=== PATIENT | female | born 1980 | race Caucasian/White ===

== ENCOUNTER 2017-04-12 19:48 | Inpatient (IN) | payer MEDICAID, OTHER ==
[~2017-04-12] VITALS: Ht 167.6 cm; Wt 91.6 kg
[~2017-04-12 19:48] MED LIST: DOCU-119 PO; GABA-318 PO; LEVE500T53 PO; LORA0.5T83 PO; MET500 PO; MULT-1238 PO; OMEP20 PO; QUET100T PO; QUET200T PO; TEMA15CA5 PO; TRAM50TA4 PO
[2017-04-12 21:06] LABS: BASOPHILS % (AUTO) 0.3 % (0.0-2.0); EOSINOPHILS % (AUTO) 0.8 % (1.0-6.0); HEMOGLOBIN 14.6 g/dL (12.0-16.0); LYMPHOCYTES # (AUTO) 4.2 K/uL (1.0-4.8); LYMPHOCYTES % (AUTO) 51.7 % (22.0-44.0); MEAN CORPUSCULAR HEMOGLOBIN 32.5 pg (26.0-34.0); MEAN CORPUSCULAR HGB CONC 34.8 G/dL (31.0-37.0); MEAN CORPUSCULAR VOLUME 93 fL (80-100); MONOCYTES # (AUTO) 0.7 K/uL (0.1-1.0); MONOCYTES % (AUTO) 8.8 % (2.0-9.0); NEUTROPHILS # (AUTO) 3.1 K/uL (1.8-7.7); NEUTROPHILS % (AUTO) 38.4 % (40.0-70.0); PLATELET COUNT (AUTO) 193 K/uL (150-450); RED BLOOD CELL COUNT(AUTO) 4.51 MIL/uL (4.00-5.20); RED CELL DISTRIBUTION WIDTH 13.6 % (11.5-14.5); WHITE BLOOD COUNT (AUTO) 8.1 K/uL (4.5-11.0)
[2017-04-12 21:15] LABS: CALCIUM, TOTAL 9.3 mg/dL (8.8-10.5); CARBON DIOXIDE 27 mmol/L (22-29); CREATININE 0.95 mg/dL (0.60-1.30); GLOMERULAR FILTR. RATE CALC > 60 mL/min (>60); UREA NITROGEN, BLOOD 11 mg/dL (7-18)
[2017-04-12 21:23] LABS: ALANINE AMINOTRANSFERASE 48 U/L (12-78); ALBUMIN 4.3 g/dL (3.4-5.0); ASPARTATE AMINOTRANSFERASE 24 U/L (15-37); BILIRUBIN,TOTAL 0.3 mg/dL (0.1-1.0); TOTAL PROTEIN, SERUM 8.3 g/dL (6.4-8.2)
[2017-04-12 21:32] LABS: ANION GAP 10 mmol/L (8-16); CHLORIDE 101 mmol/L (98-107); POTASSIUM 3.3 mmol/L (3.5-5.1); SODIUM SERUM 138 mmol/L (136-145)
[2017-04-12] MEDS ORDERED: LORazepam 2 MG TABLET PO ONE (22:00)
[2017-04-12] MEDS ORDERED: POTASSIUM CHLORIDE 10% 40 MEQ/30 ML LIQUID UDCUP PO ONE (22:00)
[2017-04-12 22:50] LABS: CHOL/HDL RATIO 3.5 (3.9-5.7)
[2017-04-13 00:39] VITALS: BP 118/81
[2017-04-13] MEDS: ZOLPIDEM TARTRATE 10 MG TABLET PO PRN ×2 (00:40→20:59)
[2017-04-13] MEDS: LORazepam 2 MG TABLET PO PRN ×4 (01:53→15:50)
[2017-04-13] MEDS: METHADONE HCL 10 MG TABLET PO SCH (08:42)
[2017-04-13] MEDS ORDERED: ALBUTEROL SULFATE HFA 90 MCG/PUFF 8 GM INHALER IH PRN (09:00)
[2017-04-13] MEDS ORDERED: ACETAMINOPHEN 325 MG TABLET PO PRN (09:00)
[2017-04-13] MEDS ORDERED: BENZOCAINE/MENTHOL LOZENGE MM PRN (09:00)
[2017-04-13] MEDS ORDERED: IBUPROFEN 600 MG TABLET PO PRN (09:00)
[2017-04-13] MEDS ORDERED: CloNIDine HCL 0.1 MG TABLET PO PRN (09:00)
[2017-04-13] MEDS ORDERED: PETROLATUM,WHITE 71 GM JELLY TP PRN (09:00)
[2017-04-13] MEDS ORDERED: MAGNESIUM HYDROXIDE SUSPENSION 30 ML UDCUP PO PRN (09:00)
[2017-04-13] MEDS ORDERED: BACITRACIN 28.4 GM OINTMENT TP PRN (09:00)
[2017-04-13] MEDS ORDERED: ONDANSETRON HCL 4 MG TABLET PO PRN (09:00)
[2017-04-13] MEDS ORDERED: MAG HYDROX/AL HYDROX/SIMETH ES 30 ML SUSPENSION UDCUP PO PRN (09:00)
[2017-04-13] MEDS ORDERED: LOPERAMIDE HCL 2 MG CAPSULE PO PRN (09:00)
[2017-04-13 10:59] VITALS: BP 107/73
[2017-04-13] MEDS: QUEtiapine FUMARATE 100 MG TABLET PO PRN ×2 (12:40→17:13)
[2017-04-13] MEDS: RisperiDONE 1 MG TABLET PO SCH (20:11)
[2017-04-13] MEDS: GABAPENTIN 300 MG CAPSULE PO SCH (20:11)
[2017-04-14] MEDS: NICOTINE 21 MG/24 HOUR PATCH TD SCH (07:58)
[2017-04-14] MEDS: RisperiDONE 1 MG TABLET PO SCH ×2 (07:59→20:22)
[2017-04-14] MEDS: ClonazePAM 0.5 MG TABLET PO SCH ×2 (07:59→16:50)
[2017-04-14] MEDS: METHADONE HCL 10 MG TABLET PO SCH (07:59)
[2017-04-14] MEDS: GABAPENTIN 300 MG CAPSULE PO SCH ×3 (07:59→20:22)
[2017-04-14 08:41] VITALS: BP 107/67
[2017-04-14] MEDS: QUEtiapine FUMARATE 100 MG TABLET PO PRN ×2 (12:14→16:50)
[2017-04-14] MEDS: HydrOXYzine PAMOATE 50 MG CAPSULE PO PRN ×2 (12:14→16:50)
[2017-04-14 16:38] VITALS: BP 130/70
[2017-04-14] MEDS: ZOLPIDEM TARTRATE 10 MG TABLET PO PRN (20:22)
[2017-04-15 04:10] VITALS: BP 124/75
[2017-04-15] MEDS: QUEtiapine FUMARATE 100 MG TABLET PO PRN ×4 (04:15→22:54)
[2017-04-15] MEDS: HydrOXYzine PAMOATE 50 MG CAPSULE PO PRN ×3 (04:15→22:54)
[2017-04-15] MEDS: ClonazePAM 0.5 MG TABLET PO SCH ×2 (08:02→17:07)
[2017-04-15] MEDS: NICOTINE 21 MG/24 HOUR PATCH TD SCH (08:02)
[2017-04-15] MEDS: METHADONE HCL 10 MG TABLET PO SCH (08:02)
[2017-04-15] MEDS: RisperiDONE 1 MG TABLET PO SCH ×2 (08:02→20:53)
[2017-04-15] MEDS: GABAPENTIN 300 MG CAPSULE PO SCH ×3 (08:02→20:53)
[2017-04-15 08:54] VITALS: BP 113/50
[2017-04-15 16:25] VITALS: BP 109/64
[2017-04-15] MEDS: ZOLPIDEM TARTRATE 10 MG TABLET PO PRN (21:07)
[2017-04-16] MEDS ORDERED: METHADONE HCL 10 MG TABLET PO SCH (06:00)
[2017-04-16 06:45] VITALS: BP 100/68
[2017-04-16] MEDS ORDERED: GABA-531 PO (07:47)
[2017-04-16] MEDS ORDERED: RISP1TAB89 PO (07:48)
[2017-04-16] MEDS: GABAPENTIN 300 MG CAPSULE PO SCH (07:58)
[2017-04-16] MEDS: RisperiDONE 1 MG TABLET PO SCH (07:58)
[2017-04-16] MEDS: ClonazePAM 0.5 MG TABLET PO SCH (07:58)
[2017-04-16] MEDS: NICOTINE 21 MG/24 HOUR PATCH TD SCH (08:01)
[2017-04-16 08:45] VITALS: BP 103/71
== END 2017-04-16 11:13 | disposition home or self-care (01) | DRG 753 ==
LOC: EMS 19:50 → B3A 22:46
PROVIDERS: ADMIT Psychiatry & Neurology Psychiatry; ATTEND Psychiatry & Neurology Psychiatry
DX: F31.5 Bipolar disorder, current episode depressed, severe, with psychotic features (principal); R56.9 Unspecified convulsions; F11.20 Opioid dependence, uncomplicated; E66.9 Obesity, unspecified; K21.9 Gastro-esophageal reflux disease without esophagitis; B19.20 Unspecified viral hepatitis C without hepatic coma; K59.00 Constipation, unspecified; Z72.0 Tobacco use; E87.6 Hypokalemia; Z68.32 Body mass index [BMI] 32.0-32.9, adult
CPT/HCPCS: 99285

== ENCOUNTER 2019-11-13 19:46 | Inpatient (IN) | payer MEDICAID, OTHER ==
[~2019-11-13] VITALS: Ht 167.6 cm; Wt 103.0 kg
[~2019-11-13 19:46] MED LIST changes: -DOCU-119 PO; -GABA-318 PO; +GABA-531 PO; -LEVE500T53 PO; -LORA0.5T83 PO; -MET500 PO; -MULT-1238 PO; -OMEP20 PO; -QUET100T PO; -QUET200T PO; +RISP1TAB89 PO; -TEMA15CA5 PO; -TRAM50TA4 PO
[2019-11-13] MEDS ORDERED: METH10 PO (20:25)
[2019-11-13] MEDS ORDERED: GABA-531 PO (20:25)
[2019-11-13] MEDS ORDERED: BENZ1TAB10 PO (20:25)
[2019-11-13] MEDS ORDERED: CLON.5 PO (20:25)
[2019-11-13] MEDS ORDERED: QUET25TA PO (20:25)
[2019-11-13 22:06] LABS: BASOPHILS % (AUTO) 0.4 % (0.0-2.0); HEMATOCRIT 41.5 % (36-46); HEMOGLOBIN 14.2 g/dL (12.0-16.0); LYMPHOCYTES # (AUTO) 4.5 K/uL (1.0-4.8); LYMPHOCYTES % (AUTO) 43.8 % (22.0-44.0); MEAN CORPUSCULAR HEMOGLOBIN 31.1 pg (26.0-34.0); MEAN CORPUSCULAR HGB CONC 34.1 G/dL (31.0-37.0); MEAN CORPUSCULAR VOLUME 91 fL (80-100); MONOCYTES # (AUTO) 0.9 K/uL (0.1-1.0); MONOCYTES % (AUTO) 9.3 % (2.0-9.0); NEUTROPHILS # (AUTO) 4.6 K/uL (1.8-7.7); NEUTROPHILS % (AUTO) 45.5 % (40.0-70.0); PLATELET COUNT (AUTO) 204 K/uL (150-450); RED BLOOD CELL COUNT(AUTO) 4.56 MIL/uL (4.00-5.20); RED CELL DISTRIBUTION WIDTH 15.7 % (11.5-14.5)
[2019-11-13 22:16] LABS: ANION GAP 10 mmol/L (8-16); CALCIUM, TOTAL 9.7 mg/dL (8.8-10.5); CARBON DIOXIDE 28 mmol/L (22-29); CHLORIDE 102 mmol/L (98-107); CREATININE 0.75 mg/dL (0.60-1.30); GLOMERULAR FILTR. RATE CALC > 60 mL/min (>60); GLUCOSE,RANDOM 82 mg/dL (70-110); POTASSIUM 3.5 mmol/L (3.5-5.1); SODIUM SERUM 140 mmol/L (136-145); UREA NITROGEN, BLOOD 7 mg/dL (7-18)
[2019-11-13 22:23] LABS: ALANINE AMINOTRANSFERASE 69 U/L (12-78); ALBUMIN 4.2 g/dL (3.4-5.0); ALKALINE PHOSPHATASE 97 U/L (46-116); ASPARTATE AMINOTRANSFERASE 29 U/L (15-37); BILIRUBIN,TOTAL 0.4 mg/dL (0.1-1.0)
[2019-11-14] MEDS ORDERED: LORazepam 2 MG TABLET PO ONE (01:15)
[2019-11-14] MEDS ORDERED: LORazepam 2 MG TABLET PO PRN (01:15)
[2019-11-14 04:30] VITALS: BP 128/79
[2019-11-14] MEDS: QUEtiapine FUMARATE 100 MG TABLET PO PRN ×3 (04:35→13:10)
[2019-11-14] MEDS ORDERED: PNEUMOCOCCAL VACCINE POLYVALENT 0.5 ML VIAL [PPSV23] IM ONE (05:45)
[2019-11-14] MEDS ORDERED: BENZOCAINE/MENTHOL LOZENGE MM PRN (07:15)
[2019-11-14] MEDS ORDERED: ACETAMINOPHEN 325 MG TABLET PO PRN (07:15)
[2019-11-14] MEDS ORDERED: MAG HYDROX/AL HYDROX/SIMETH ES 30 ML SUSPENSION UDCUP PO PRN (07:15)
[2019-11-14] MEDS ORDERED: LOPERAMIDE HCL 2 MG CAPSULE PO PRN (07:15)
[2019-11-14] MEDS ORDERED: PETROLATUM,WHITE 28 GM JELLY TP PRN (07:15)
[2019-11-14] MEDS ORDERED: CloNIDine HCL 0.1 MG TABLET PO PRN (07:15)
[2019-11-14] MEDS ORDERED: MAGNESIUM HYDROXIDE SUSPENSION 30 ML UDCUP PO PRN (07:15)
[2019-11-14] MEDS ORDERED: ALBUTEROL SULFATE HFA 90 MCG/PUFF 8 GM INHALER IH PRN (07:15)
[2019-11-14] MEDS ORDERED: ONDANSETRON HCL 4 MG TABLET PO PRN (07:15)
[2019-11-14] MEDS ORDERED: BACITRACIN 28.4 GM OINTMENT TP PRN (07:15)
[2019-11-14] MEDS ORDERED: METHADONE HCL 10 MG TABLET PO SCH (08:00)
[2019-11-14] MEDS: GABAPENTIN 300 MG CAPSULE PO SCH ×3 (08:14→16:07)
[2019-11-14] MEDS: DOCUSATE SODIUM 100 MG CAPSULE PO SCH (08:15)
[2019-11-14] MEDS: OMEPRAZOLE 20 MG CAPSULE PO SCH (08:15)
[2019-11-14 08:29] VITALS: BP 133/101
[2019-11-14] MEDS ORDERED: ClonazePAM 1 MG TABLET PO SCH (09:00)
[2019-11-14] MEDS ORDERED: BENZTROPINE MESYLATE 2 MG TABLET PO SCH (09:00)
[2019-11-14 10:00] VITALS: BP 124/88
[2019-11-14] MEDS ORDERED: QUET300T2 PO (13:16)
[2019-11-14] MEDS ORDERED: BUSP10TA3 PO (13:16)
[2019-11-14] MEDS ORDERED: RISP2 PO (13:16)
[2019-11-14] MEDS: NICOTINE 21 MG/24 HOUR PATCH TD SCH (13:27)
[2019-11-14] MEDS: ACAMPROSATE CALCIUM 333 MG DR TABLET PO SCH (16:07)
[2019-11-14 16:21] VITALS: BP 142/60
[2019-11-14] MEDS: ZOLPIDEM TARTRATE 10 MG TABLET PO PRN (20:35)
[2019-11-14] MEDS: OLANZapine 5 MG RAPDIS TABLET PO SCH (20:36)
[2019-11-14] MEDS ORDERED: RisperiDONE 1 MG TABLET PO SCH (21:00)
[2019-11-15] MEDS: OLANZapine 5 MG RAPDIS TABLET PO PRN ×4 (01:14→16:20)
[2019-11-15 04:41] VITALS: BP 126/99
[2019-11-15] MEDS: METHADONE HCL 10 MG TABLET PO SCH (06:42)
[2019-11-15] MEDS: OMEPRAZOLE 20 MG CAPSULE PO SCH (08:00)
[2019-11-15] MEDS: DOCUSATE SODIUM 100 MG CAPSULE PO SCH (08:00)
[2019-11-15] MEDS: GABAPENTIN 300 MG CAPSULE PO SCH ×3 (08:00→16:21)
[2019-11-15] MEDS: ACAMPROSATE CALCIUM 333 MG DR TABLET PO SCH ×3 (08:00→16:20)
[2019-11-15] MEDS: NICOTINE 21 MG/24 HOUR PATCH TD SCH (08:04)
[2019-11-15] MEDS: DENTURE ADHESIVE 68 GM CREAM DT PRN ×2 (08:05→16:56)
[2019-11-15 08:14] VITALS: BP 100/57
[2019-11-15 08:25] LABS: CHOL/HDL RATIO 3.2 (3.9-5.7)
[2019-11-15] MEDS ORDERED: FLUoxetine HCL 20 MG CAPSULE PO SCH (09:00)
[2019-11-15 16:00] VITALS: BP 114/81
[2019-11-15] MEDS: IBUPROFEN 600 MG TABLET PO PRN (16:20)
[2019-11-15] MEDS: ZOLPIDEM TARTRATE 10 MG TABLET PO PRN (20:05)
[2019-11-15] MEDS: OLANZapine 5 MG RAPDIS TABLET PO SCH (20:05)
[2019-11-16 05:14] VITALS: BP 127/86
[2019-11-16] MEDS: METHADONE HCL 10 MG TABLET PO SCH (06:01)
[2019-11-16] MEDS: DENTURE ADHESIVE 68 GM CREAM DT PRN (06:10)
[2019-11-16] MEDS: OLANZapine 5 MG RAPDIS TABLET PO PRN ×2 (06:35→11:02)
[2019-11-16 08:01] VITALS: BP 112/74
[2019-11-16] MEDS: DOCUSATE SODIUM 100 MG CAPSULE PO SCH (08:01)
[2019-11-16] MEDS: ACAMPROSATE CALCIUM 333 MG DR TABLET PO SCH ×3 (08:01→17:10)
[2019-11-16] MEDS: GABAPENTIN 400 MG CAPSULE PO SCH ×3 (08:01→17:08)
[2019-11-16] MEDS: OMEPRAZOLE 20 MG CAPSULE PO SCH (08:01)
[2019-11-16] MEDS: IBUPROFEN 600 MG TABLET PO PRN ×2 (08:02→17:11)
[2019-11-16] MEDS: TraZODone HCL 50 MG TABLET PO SCH ×2 (08:02→12:33)
[2019-11-16] MEDS: NICOTINE 21 MG/24 HOUR PATCH TD SCH (08:04)
[2019-11-16] MEDS ORDERED: DULoxetine HCL 20 MG CAPSULE PO SCH (09:00)
[2019-11-16] MEDS: TraZODone HCL 100 MG TABLET PO SCH (17:09)
[2019-11-16 17:12] VITALS: BP 123/88
[2019-11-16] MEDS: ZOLPIDEM TARTRATE 10 MG TABLET PO PRN (20:53)
[2019-11-16] MEDS: OLANZapine 5 MG RAPDIS TABLET PO SCH (20:53)
[2019-11-17 05:36] VITALS: BP 130/63
[2019-11-17] MEDS: METHADONE HCL 10 MG TABLET PO SCH (06:03)
[2019-11-17] MEDS: OLANZapine 5 MG RAPDIS TABLET PO PRN ×2 (06:04→13:34)
[2019-11-17] MEDS: DOCUSATE SODIUM 100 MG CAPSULE PO SCH (08:24)
[2019-11-17] MEDS: NICOTINE 21 MG/24 HOUR PATCH TD SCH (08:24)
[2019-11-17] MEDS: GABAPENTIN 400 MG CAPSULE PO SCH ×3 (08:24→18:19)
[2019-11-17] MEDS: ACAMPROSATE CALCIUM 333 MG DR TABLET PO SCH ×3 (08:24→18:19)
[2019-11-17] MEDS: TraZODone HCL 100 MG TABLET PO SCH ×3 (08:24→18:19)
[2019-11-17] MEDS: OMEPRAZOLE 20 MG CAPSULE PO SCH (08:25)
[2019-11-17 08:35] VITALS: BP 127/76
[2019-11-17] MEDS ORDERED: DULoxetine HCL 30 MG CAPSULE PO SCH (09:00)
[2019-11-17 16:03] VITALS: BP 108/71
[2019-11-17] MEDS: ZOLPIDEM TARTRATE 10 MG TABLET PO PRN (21:07)
[2019-11-17] MEDS: OLANZapine 5 MG RAPDIS TABLET PO SCH (21:08)
[2019-11-18 05:06] VITALS: BP 105/68
[2019-11-18] MEDS: METHADONE HCL 10 MG TABLET PO SCH (06:12)
[2019-11-18] MEDS: OLANZapine 5 MG RAPDIS TABLET PO PRN ×2 (06:13→16:00)
[2019-11-18] MEDS: GABAPENTIN 400 MG CAPSULE PO SCH ×3 (07:59→16:01)
[2019-11-18] MEDS: OMEPRAZOLE 20 MG CAPSULE PO SCH (07:59)
[2019-11-18] MEDS: ACAMPROSATE CALCIUM 333 MG DR TABLET PO SCH ×3 (07:59→16:01)
[2019-11-18] MEDS: DULoxetine HCL 20 MG CAPSULE PO SCH (07:59)
[2019-11-18] MEDS: DOCUSATE SODIUM 100 MG CAPSULE PO SCH (08:00)
[2019-11-18] MEDS: TraZODone HCL 100 MG TABLET PO SCH ×3 (08:00→16:01)
[2019-11-18] MEDS: FLUoxetine HCL 20 MG CAPSULE PO SCH (08:00)
[2019-11-18] MEDS: NICOTINE 21 MG/24 HOUR PATCH TD SCH (08:02)
[2019-11-18 08:07] VITALS: BP 120/74
[2019-11-18] MEDS: DENTURE ADHESIVE 68 GM CREAM DT PRN (15:59)
[2019-11-18 16:45] VITALS: BP 120/88
[2019-11-18] MEDS: OLANZapine 5 MG RAPDIS TABLET PO SCH (20:04)
[2019-11-18] MEDS: ZOLPIDEM TARTRATE 10 MG TABLET PO PRN (20:48)
[2019-11-19 05:34] VITALS: BP 102/78
[2019-11-19] MEDS: METHADONE HCL 10 MG TABLET PO SCH (06:06)
[2019-11-19] MEDS: OLANZapine 5 MG RAPDIS TABLET PO PRN ×2 (06:06→14:25)
[2019-11-19] MEDS: GABAPENTIN 400 MG CAPSULE PO SCH ×3 (08:03→17:11)
[2019-11-19] MEDS: DOCUSATE SODIUM 100 MG CAPSULE PO SCH (08:03)
[2019-11-19] MEDS: OMEPRAZOLE 20 MG CAPSULE PO SCH (08:03)
[2019-11-19] MEDS: TraZODone HCL 100 MG TABLET PO SCH ×3 (08:04→17:11)
[2019-11-19] MEDS: DULoxetine HCL 20 MG CAPSULE PO SCH (08:04)
[2019-11-19] MEDS: FLUoxetine HCL 20 MG CAPSULE PO SCH (08:04)
[2019-11-19] MEDS: ACAMPROSATE CALCIUM 333 MG DR TABLET PO SCH ×3 (08:04→17:11)
[2019-11-19] MEDS: NICOTINE 21 MG/24 HOUR PATCH TD SCH (08:05)
[2019-11-19 08:16] VITALS: BP 138/81
[2019-11-19] MEDS ORDERED: FLUoxetine HCL 20 MG CAPSULE PO ONE (12:45)
[2019-11-19 16:21] VITALS: BP 131/73
[2019-11-19] MEDS: ZOLPIDEM TARTRATE 10 MG TABLET PO PRN (20:35)
[2019-11-19] MEDS: OLANZapine 5 MG RAPDIS TABLET PO SCH (20:36)
[2019-11-20 05:09] VITALS: BP 101/76
[2019-11-20] MEDS: OLANZapine 5 MG RAPDIS TABLET PO PRN ×2 (06:02→18:41)
[2019-11-20] MEDS: METHADONE HCL 10 MG TABLET PO SCH (06:03)
[2019-11-20] MEDS: DOCUSATE SODIUM 100 MG CAPSULE PO SCH (08:10)
[2019-11-20] MEDS: GABAPENTIN 400 MG CAPSULE PO SCH ×3 (08:10→16:40)
[2019-11-20] MEDS: ACAMPROSATE CALCIUM 333 MG DR TABLET PO SCH ×3 (08:10→16:40)
[2019-11-20] MEDS: DULoxetine HCL 20 MG CAPSULE PO SCH (08:10)
[2019-11-20] MEDS: TraZODone HCL 100 MG TABLET PO SCH ×3 (08:10→16:40)
[2019-11-20] MEDS: NICOTINE 21 MG/24 HOUR PATCH TD SCH (08:11)
[2019-11-20] MEDS: FLUoxetine HCL 20 MG CAPSULE PO SCH (08:11)
[2019-11-20] MEDS: OMEPRAZOLE 20 MG CAPSULE PO SCH (08:12)
[2019-11-20 11:18] VITALS: BP 106/58
[2019-11-20 13:50] VITALS: BP 110/67
[2019-11-20] MEDS: IBUPROFEN 600 MG TABLET PO PRN (13:50)
[2019-11-20] MEDS ORDERED: ACAM333T7 PO (16:23)
[2019-11-20] MEDS ORDERED: GABA-533 PO (16:23)
[2019-11-20] MEDS ORDERED: MIRT15TA6 PO (16:23)
[2019-11-20] MEDS ORDERED: OLAN5TAB30 PO (16:23)
[2019-11-20] MEDS ORDERED: FLUO-191 PO (16:23)
[2019-11-20] MEDS ORDERED: TRAZ-257 PO (16:23)
[2019-11-20 18:37] VITALS: BP 123/68
[2019-11-20] MEDS: ZOLPIDEM TARTRATE 10 MG TABLET PO PRN (20:16)
[2019-11-20] MEDS: OLANZapine 5 MG RAPDIS TABLET PO SCH (20:17)
[2019-11-20] MEDS ORDERED: MIRTAZAPINE 15 MG TABLET PO SCH ×2 (21:00)
[2019-11-21] MEDS: METHADONE HCL 10 MG TABLET PO SCH (05:35)
[2019-11-21] MEDS: OLANZapine 5 MG RAPDIS TABLET PO PRN (05:46)
[2019-11-21 05:49] VITALS: BP 115/91
[2019-11-21] MEDS: FLUoxetine HCL 20 MG CAPSULE PO SCH (08:00)
[2019-11-21] MEDS: GABAPENTIN 400 MG CAPSULE PO SCH ×2 (08:00→12:07)
[2019-11-21] MEDS: TraZODone HCL 100 MG TABLET PO SCH ×2 (08:01→12:08)
[2019-11-21] MEDS: NICOTINE 21 MG/24 HOUR PATCH TD SCH (08:01)
[2019-11-21] MEDS: OMEPRAZOLE 20 MG CAPSULE PO SCH (08:01)
[2019-11-21] MEDS: DOCUSATE SODIUM 100 MG CAPSULE PO SCH (08:01)
[2019-11-21] MEDS: ACAMPROSATE CALCIUM 333 MG DR TABLET PO SCH ×2 (08:01→12:08)
[2019-11-21 08:10] VITALS: BP 131/77
[2019-11-21] MEDS: DENTURE ADHESIVE 68 GM CREAM DT PRN (08:44)
[2019-11-21 10:16] VITALS: BP 118/64
[2019-11-21] MEDS: IBUPROFEN 600 MG TABLET PO PRN (10:16)
== END 2019-11-21 13:44 | disposition home or self-care (01) | DRG 750 ==
LOC: EMS 19:48 → B3A 11-14 02:05
PROVIDERS: ADMIT Psychiatry & Neurology Psychiatry; ATTEND Psychiatry & Neurology Psychiatry
DX: F25.1 Schizoaffective disorder, depressive type (principal); R45.851 Suicidal ideations; Z91.14 Patient's other noncompliance with medication regimen; F41.9 Anxiety disorder, unspecified; G47.00 Insomnia, unspecified; K59.00 Constipation, unspecified; F17.200 Nicotine dependence, unspecified, uncomplicated
CPT/HCPCS: G0480